=== PATIENT | female | born 1985 | race Caucasian/White ===

== ENCOUNTER → 2017-01-09 | Outpatient (CLI) | payer MEDICAID ==
[~2017-01-09] MED LIST: AMOXICILLIN875 MG PO; MOTRIN-DPS800 MG PO; OXY IR DPS5 MG PO; PRENATAL VIT1 TAB PO
== END | disposition home or self-care (01) ==
LOC: RAD.S 12-27 11:00
DX: Z36 Encounter for antenatal screening of mother (principal); Z3A.20 20 weeks gestation of pregnancy

== ENCOUNTER 2017-01-29 10:44 | Emergency (ER) | payer MEDICAID ==
--- NOTE | 2017-02-04 08:15 | ER ---
ADMIT: 01/29/2017 RM/LOC: ER [facility] MR#: [id number] [place], [place] [id number] FELIBERTO GARCIA [address] [place] [address] [id number] Emergency Room Report SEX: F AGE: 32 : 1985 DATE: 01/29/2017 CHIEF COMPLAINT: Increased shortness of breath and chest burning since Monday. HISTORY OF PRESENT ILLNESS: She called her primary provider and was given Ceftin over the phone. She still not feeling well. She is 23 weeks' . She complains this morning of a little bit of nausea due to her cough. She does have plenty of medications. She has Ceftin and promethazine for cough, Mucinex and multivitamins and Zofran as well. Her past medical history is negative. She is 1, para 0. She is afebrile this morning. PHYSICAL EXAMINATION: VITAL SIGNS: Blood pressure 111/95 with a pulse of 100, respirations 18, temp is 98.3, and O2 sats 98%. heart tones are 158. GENERAL: Alert and oriented, very pleasant. She does not seem to be in any acute distress. RESPIRATORY: No distress. CHEST: Nontender. CVS: Regular rate and rhythm. SKIN: Good color and turgor. EXTREMITIES: Well perfused. HEENT: She does have some congestion in nasal passages. The posterior pharynx is slightly erythematous. No exudate present. Encouraged to follow up with her primary provider. She can continue the medications she is on. Advised that antibiotics start working between 3 and 5 days, and she is a little early for that. She needs hydration. Continue home medications. May rinse nose with saline spray. Chloraseptic spray daily for sore throat. CLINICAL IMPRESSION: Nasopharyngitis or common cold. KOJO Santos / Ramírez Sosa MD / isail JOB #: [id number] CC: Ramírez Sosa MD, Attending Physician Beto Chamorro MD, Family Physician
[2017-05-26] MEDS ORDERED: AMOXICILLIN875 MG PO (18:17)
[2017-05-26] MEDS ORDERED: PRENATAL VIT1 TAB PO (18:17)
[2017-05-26] MEDS ORDERED: MOTRIN-DPS800 MG PO (18:18)
[2017-05-26] MEDS ORDERED: OXY IR DPS5 MG PO (18:18)
== END 2017-01-29 11:33 | disposition home or self-care (01) ==
LOC: ER 10:44
DX: J00 Acute nasopharyngitis [common cold] (principal); Z79.899 Other long term (current) drug therapy

== ENCOUNTER → 2017-04-21 | Outpatient (CLI) | payer MEDICAID | END | disposition home or self-care (01) | LOC: RAD.S 04-20 15:00 | DX: Z36 Encounter for antenatal screening of mother (principal); Z3A.36 36 weeks gestation of pregnancy ==